=== PATIENT | female | born 1985 | race African-American/Black ===

== ENCOUNTER 2018-07-07 18:42 | Inpatient (IN) | payer MEDICAID, OTHER ==
[~2018-07-07] VITALS: Ht 167.6 cm; Wt 107.0 kg
[2018-07-07 20:14] LABS: BASOPHILS % (AUTO) 0.4 % (0.0-2.0); EOSINOPHILS % (AUTO) 1.3 % (1.0-6.0); HEMATOCRIT 39.6 % (36-46); HEMOGLOBIN 13.4 g/dL (12.0-16.0); LYMPHOCYTES # (AUTO) 2.1 K/uL (1.0-4.8); LYMPHOCYTES % (AUTO) 26.4 % (22.0-44.0); MEAN CORPUSCULAR HEMOGLOBIN 30.8 pg (26.0-34.0); MEAN CORPUSCULAR HGB CONC 33.8 G/dL (31.0-37.0); MEAN CORPUSCULAR VOLUME 91 fL (80-100); MONOCYTES # (AUTO) 0.6 K/uL (0.1-1.0); MONOCYTES % (AUTO) 7.9 % (2.0-9.0); PLATELET COUNT (AUTO) 331 K/uL (150-450); RED BLOOD CELL COUNT(AUTO) 4.35 MIL/uL (4.00-5.20); RED CELL DISTRIBUTION WIDTH 13.1 % (11.5-14.5)
[2018-07-07 20:23] LABS: ANION GAP 6 mmol/L (8-16); CALCIUM, TOTAL 9.6 mg/dL (8.8-10.5); CARBON DIOXIDE 28 mmol/L (22-29); CHLORIDE 105 mmol/L (98-107); CREATININE 1.08 mg/dL (0.60-1.30); GLOMERULAR FILTR. RATE CALC > 60 mL/min (>60); GLUCOSE,RANDOM 109 mg/dL (70-110); POTASSIUM 4.2 mmol/L (3.5-5.1); SODIUM SERUM 139 mmol/L (136-145); UREA NITROGEN, BLOOD 12 mg/dL (7-18)
[2018-07-07 20:36] LABS: ALANINE AMINOTRANSFERASE 41 U/L (12-78); ALBUMIN 3.8 g/dL (3.4-5.0); ALKALINE PHOSPHATASE 137 U/L (46-116); ASPARTATE AMINOTRANSFERASE 20 U/L (15-37); BILIRUBIN,TOTAL 0.5 mg/dL (0.1-1.0); HCG,QUANTITATIVE < 1 mIU/mL (0-6); TOTAL PROTEIN, SERUM 7.9 g/dL (6.4-8.2)
[2018-07-07] MEDS ORDERED: ZOLPIDEM TARTRATE 10 MG TABLET PO PRN (20:45)
[2018-07-07] MEDS ORDERED: HALOPERIDOL 5 MG TABLET PO PRN (20:45)
[2018-07-07] MEDS ORDERED: LORazepam 2 MG TABLET PO PRN (20:45)
[2018-07-08 01:34] VITALS: BP 140/86
[2018-07-08 01:35] VITALS: BP 140/86
[2018-07-08 07:08] LABS: GLUCOMETER DEV NAME(LOC) BV3S 2; GLUCOSE,POINT OF CARE 99 MG/DL (70-110)
[2018-07-08] MEDS ORDERED: PETROLATUM,WHITE 71 GM JELLY TP PRN (07:30)
[2018-07-08] MEDS ORDERED: ACETAMINOPHEN 325 MG TABLET PO PRN (07:30)
[2018-07-08] MEDS ORDERED: ALBUTEROL SULFATE HFA 90 MCG/PUFF 8 GM INHALER IH PRN (07:30)
[2018-07-08] MEDS ORDERED: MAGNESIUM HYDROXIDE SUSPENSION 30 ML UDCUP PO PRN (07:30)
[2018-07-08] MEDS ORDERED: MAG HYDROX/AL HYDROX/SIMETH ES 30 ML SUSPENSION UDCUP PO PRN (07:30)
[2018-07-08] MEDS ORDERED: IBUPROFEN 400 MG TABLET PO PRN (07:30)
[2018-07-08] MEDS ORDERED: GuaiFENesin/D-METHORPHAN [SUGAR-FREE] 200-20MG/10 ML SYRUP UDCUP PO PRN (07:30)
[2018-07-08] MEDS ORDERED: NICOTINE 14 MG/24 HOUR PATCH TD PRN (07:30)
[2018-07-08] MEDS ORDERED: ONDANSETRON HCL 4 MG TABLET PO PRN (07:30)
[2018-07-08] MEDS ORDERED: LOPERAMIDE HCL 2 MG CAPSULE PO PRN (07:30)
[2018-07-08] MEDS ORDERED: DOCUSATE SODIUM 100 MG CAPSULE PO PRN (07:30)
[2018-07-08] MEDS ORDERED: CloNIDine HCL 0.1 MG TABLET PO PRN (07:30)
[2018-07-08 08:14] VITALS: BP 130/90
[2018-07-08 08:56] LABS: HEMOGLOBIN A1C 5.9 % (4.5-6.2)
[2018-07-08 09:03] LABS: CHOL/HDL RATIO 1.8 (3.9-5.7)
[2018-07-08 09:10] LABS: FREE T4 (FREE THYROXINE) 0.81 ng/dL (0.76-1.46); THYROID STIMULATING HORMONE 2.56 uIU/mL (0.36-3.74)
[2018-07-08 16:05] VITALS: BP 109/80
[2018-07-09 05:46] VITALS: BP 125/77
[2018-07-09 08:20] VITALS: BP 124/77
== END 2018-07-09 15:17 | disposition home or self-care (01) | DRG 751 ==
LOC: EMS 18:43 → B2S 22:41 → B3A 23:44
PROVIDERS: ADMIT Psychiatry & Neurology Psychiatry; ATTEND Psychiatry & Neurology Psychiatry
DX: F29 Unspecified psychosis not due to a substance or known physiological condition (principal); E11.9 Type 2 diabetes mellitus without complications; F41.9 Anxiety disorder, unspecified; K21.9 Gastro-esophageal reflux disease without esophagitis; Z28.21 Immunization not carried out because of patient refusal
CPT/HCPCS: 83036; 84439; 84443; G0480

== ENCOUNTER 2019-02-27 18:21 | Inpatient (IN) | payer MEDICAID, OTHER ==
[~2019-02-27] VITALS: Ht 170.2 cm; Wt 109.8 kg
[2019-02-27 20:54] LABS: GLUCOSE,POINT OF CARE 122 MG/DL (70-110)
[2019-02-27 23:00] LABS: GLUCOSE,POINT OF CARE 109 MG/DL (70-110)
[2019-02-27 23:07] LABS: BASOPHILS % (AUTO) 0.7 % (0.0-2.0); EOSINOPHILS % (AUTO) 0.5 % (1.0-6.0); HEMATOCRIT 41.1 % (36-46); HEMOGLOBIN 13.2 g/dL (12.0-16.0); LYMPHOCYTES # (AUTO) 3.5 K/uL (1.0-4.8); LYMPHOCYTES % (AUTO) 38.2 % (22.0-44.0); MEAN CORPUSCULAR HEMOGLOBIN 30.8 pg (26.0-34.0); MEAN CORPUSCULAR HGB CONC 32.2 G/dL (31.0-37.0); MEAN CORPUSCULAR VOLUME 96 fL (80-100); MONOCYTES # (AUTO) 1.2 K/uL (0.1-1.0); MONOCYTES % (AUTO) 13.1 % (2.0-9.0); NEUTROPHILS # (AUTO) 4.3 K/uL (1.8-7.7); NEUTROPHILS % (AUTO) 47.5 % (40.0-70.0); PLATELET COUNT (AUTO) 202 K/uL (150-450)
[2019-02-27 23:15] LABS: AMPHET/METH SCREEN,URINE NEGATIVE (NEGATIVE); BARBITURATE SCREEN, URINE NEGATIVE (NEGATIVE); BENZODIAZEPINES SCREEN,URINE NEGATIVE (NEGATIVE); CANNABINOID SCREEN,URINE NEGATIVE (NEGATIVE); COCAINE SCREEN,URINE NEGATIVE (NEGATIVE); METHADONE SCREEN, URINE NEGATIVE (NEGATIVE); OPIATE SCREEN,URINE NEGATIVE (NEGATIVE); PHENCYCLIDINE SCREEN,URINE NEGATIVE (NEGATIVE)
[2019-02-27 23:20] LABS: ANION GAP 9 mmol/L (8-16); CALCIUM, TOTAL 9.4 mg/dL (8.8-10.5); CARBON DIOXIDE 25 mmol/L (22-29); CHLORIDE 106 mmol/L (98-107); CREATININE 1.01 mg/dL (0.60-1.30); GLOMERULAR FILTR. RATE CALC > 60 mL/min (>60); GLUCOSE,RANDOM 108 mg/dL (70-110); POTASSIUM 4.2 mmol/L (3.5-5.1); SODIUM SERUM 140 mmol/L (136-145); UREA NITROGEN, BLOOD 21 mg/dL (7-18)
[2019-02-27 23:28] LABS: ALANINE AMINOTRANSFERASE 44 U/L (12-78); ALBUMIN 3.6 g/dL (3.4-5.0); ALKALINE PHOSPHATASE 78 U/L (46-116); ASPARTATE AMINOTRANSFERASE 28 U/L (15-37); BILIRUBIN,TOTAL 0.4 mg/dL (0.1-1.0); HCG,QUANTITATIVE < 1 mIU/mL (0-6); TOTAL PROTEIN, SERUM 7.1 g/dL (6.4-8.2)
[2019-02-27] MEDS ORDERED: CLON.5 PO (23:28)
[2019-02-27] MEDS ORDERED: OMEP10 PO (23:28)
[2019-02-27] MEDS ORDERED: PREG25 PO (23:28)
[2019-02-27] MEDS ORDERED: GABA-531 PO (23:28)
[2019-02-27] MEDS ORDERED: HYDR-4031 PO (23:28)
[2019-02-28] MEDS ORDERED: HALOPERIDOL 5 MG TABLET PO PRN (01:00)
[2019-02-28] MEDS ORDERED: LORazepam 2 MG TABLET PO PRN (01:00)
[2019-02-28] MEDS ORDERED: ZOLPIDEM TARTRATE 10 MG TABLET PO PRN (01:00)
[2019-02-28 03:19] LABS: GLUCOMETER DEV NAME(LOC) BV3S.; GLUCOSE,POINT OF CARE 108 MG/DL (70-110)
[2019-02-28 03:21] LABS: APPEARANCE,URINE CLEAR (CLEAR); BILIRUBIN,URINE NEGATIVE (NEGATIVE); GLUCOSE, URINE (UA) NEGATIVE (NEGATIVE); KETONES,URINE TRACE mg/dL (NEGATIVE); LEUKOCYTE ESTERASE ,URINE NEGATIVE (NEGATIVE); NITRATE,URINE NEGATIVE (NEGATIVE); OCCULT BLOOD,URINE TRACE (NEGATIVE); PROTEIN,URINE TRACE (NEGATIVE); UROBILINOGEN,URINE 0.2 mg/dL (<=1.0)
[2019-02-28 03:29] LABS: RBC,URINE 0-2 /HPF (0-2)
[2019-02-28 03:30] LABS: BACTERIA,URINE Few /HPF (None Seen); SQUAMOUS EPITHELIAL CELL,UR Moderate /LPF (None Seen)
[2019-02-28 03:50] VITALS: BP 133/75
[2019-02-28] MEDS ORDERED: PNEUMOCOCCAL VACCINE POLYVALENT 0.5 ML VIAL [PPSV23] IM ONE (04:45)
[2019-02-28] MEDS ORDERED: PETROLATUM,WHITE 28 GM JELLY TP PRN (06:15)
[2019-02-28] MEDS ORDERED: DOCUSATE SODIUM 100 MG CAPSULE PO PRN (06:15)
[2019-02-28] MEDS ORDERED: ACETAMINOPHEN 325 MG TABLET PO PRN (06:15)
[2019-02-28] MEDS ORDERED: ONDANSETRON HCL 4 MG TABLET PO PRN (06:15)
[2019-02-28] MEDS ORDERED: LOPERAMIDE HCL 2 MG CAPSULE PO PRN (06:15)
[2019-02-28] MEDS ORDERED: ALBUTEROL SULFATE HFA 90 MCG/PUFF 8 GM INHALER IH PRN (06:15)
[2019-02-28] MEDS ORDERED: MAG HYDROX/AL HYDROX/SIMETH ES 30 ML SUSPENSION UDCUP PO PRN (06:15)
[2019-02-28] MEDS ORDERED: MAGNESIUM HYDROXIDE SUSPENSION 30 ML UDCUP PO PRN (06:15)
[2019-02-28] MEDS ORDERED: IBUPROFEN 400 MG TABLET PO PRN (06:15)
[2019-02-28] MEDS ORDERED: GuaiFENesin/D-METHORPHAN [SUGAR-FREE] 200-20MG/10 ML SYRUP UDCUP PO PRN (06:15)
[2019-02-28] MEDS ORDERED: CloNIDine HCL 0.1 MG TABLET PO PRN (06:15)
[2019-02-28 08:19] VITALS: BP 127/90
[2019-02-28 08:39] LABS: GLUCOMETER DEV NAME(LOC) BV3S.; GLUCOSE,POINT OF CARE 111 MG/DL (70-110)
[2019-02-28 16:17] VITALS: BP 119/65
[2019-02-28] MEDS: OMEPRAZOLE 10 MG CAPSULE PO SCH (16:32)
[2019-03-01 00:39] VITALS: BP 122/77
[2019-03-01 02:34] LABS: GLUCOMETER DEV NAME(LOC) BV3S.; GLUCOSE,POINT OF CARE 141 MG/DL (70-110)
[2019-03-01 08:10] VITALS: BP 100/61
[2019-03-01 08:32] LABS: HEMOGLOBIN A1C 6.7 % (4.5-6.2)
[2019-03-01 08:43] LABS: CHOL/HDL RATIO 1.7 (3.9-5.7); THYROID STIMULATING HORMONE 3.1 uIU/mL (0.36-3.74)
[2019-03-01] MEDS: OMEPRAZOLE 10 MG CAPSULE PO SCH ×3 (08:43→16:41)
[2019-03-01 16:53] VITALS: BP 104/62
[2019-03-02 01:30] VITALS: BP 117/71
[2019-03-02 01:39] LABS: GLUCOMETER DEV NAME(LOC) BV3S.; GLUCOSE,POINT OF CARE 106 MG/DL (70-110)
[2019-03-02] MEDS: OMEPRAZOLE 10 MG CAPSULE PO SCH ×2 (08:07→12:18)
[2019-03-02 08:29] VITALS: BP 104/62
== END 2019-03-02 13:15 | disposition home or self-care (01) | DRG 751 ==
LOC: EMS 18:21 → B3A 02-28 01:00
PROVIDERS: ADMIT Psychiatry & Neurology Psychiatry; ATTEND Psychiatry & Neurology Psychiatry
DX: F29 Unspecified psychosis not due to a substance or known physiological condition (principal); E11.9 Type 2 diabetes mellitus without complications; F31.9 Bipolar disorder, unspecified; F41.9 Anxiety disorder, unspecified; K21.9 Gastro-esophageal reflux disease without esophagitis; R00.0 Tachycardia, unspecified; Z88.8 Allergy status to other drugs, medicaments and biological substances
CPT/HCPCS: 83036; 84443; G0480